=== PATIENT | female | born 1965 | race Two or more races ===

== ENCOUNTER 2025-04-28 18:50 | Emergency (ER) | payer OTHER ==
[~2025-04-28] VITALS: Ht 165.1 cm; Wt 63.5 kg
[~2025-04-28 18:50] MED LIST: CATAFLAM50 MG; FELDENE20 MG PO; FLEXERIL10 MG; NEURONTIN800 MG; NEURONTIN800 MG PO; PEPCID20 MG PO; RESTORIL30 MG; SEROQUEL200 MG; SIMVALTA; SKELAXIN; ULTRAM; ULTRAM ER300 MG; ULTRAM50 MG PO; XANAX XR0.5 MG; ZANAFLEX4 M1 PO
[2025-04-28] MEDS ORDERED: EFFEXOR XR37.5 MG (19:59)
[2025-04-28] MEDS ORDERED: FAMOtidine 40 MG in 0.9 % SODIUM CHLORIDE 8 ML IV PUSH ONE (20:30)
[2025-04-28] MEDS ORDERED: MORPHINE SULFATE 4 MG/ML CARTRIDGE IV ONE (20:30)
[2025-04-28] MEDS ORDERED: ONDANSETRON HCL 4 MG in 0.9 % SODIUM CHLORIDE 50 ML IV ONE (20:30)
[2025-04-28] MEDS ORDERED: ONDANSETRON HCL 2 MG/ML VIAL ONE (20:48)
[2025-04-28] MEDS ORDERED: FAMOTIDINE/PF 20 MG/2 ML VIAL ONE (20:48)
[2025-04-28 21:38] LABS: BASO % 1.6 % (0.1-1.2); EOS # 0.14 (0.04-0.54); EOS % 2.5 % (0.7-7.0); LYMPH # 2.12 (1.18-3.74); LYMPH % 37.5 % (19.3-53.1); MEAN PLATELET VOLUME 10.10 fl (9.4-12.4); MONO # 0.56 (0.24-0.82); MONO % 9.9 % (4.7-12.5); NEUT # 2.73 (1.56-6.13); NEUT % 48.3 % (34.0-71.1); RED CELL DISTRIBUTION WIDTH 13.2 % (11.6-14.4)
[2025-04-28 21:50] LABS: URINE APPEARANCE Clear; URINE BILIRRUBIN Negative (NEGATIVE); URINE BLOOD Negative; URINE COLOR Yellow; URINE GLUCOSE Negative (NEGATIVE); URINE KETONE Negative (NEGATIVE); URINE LEUKOCYTE Negative; URINE NITRATE Negative; URINE PROTEIN Negative (NEGATIVE); URINE UROBILINOGEN 0.2 E.U./dl
[2025-04-28 21:53] LABS: INR 0.98
[2025-04-28 21:54] LABS: URINE BACTERIA 266.4 uL (0.0-1933); URINE EPITHELIAL CELLS 2.7 uL (0.0-38.8); URINE WBC 16.1 uL (0.0-23.2)
[2025-04-28 21:57] LABS: URINE CAST 0.00 uL (0.0-1.40); URINE RBC 0.5 uL (0.0-20.8)
[2025-04-28 21:57] LABS: ALT/SGPT 49.0 U/L (12-78); AST/SGOT 42.0 U/L (15-37); BILIRUBIN TOTAL 0.28 mg/dL (0.3-1.2); BUN CREA RATIO 16.0 (7.0-25.0); CREATININE SERUM 0.75 mg/dL (0.55-1.02); GFR 79.37; GLOBULINA 2.3 G/DL (2.4-3.5); GLUCOSE FASTING 112.0 mg/dL (65-100); OSMOLALITY SERUM 297.0 MOSM/KG (275-295)
[2025-04-28] MEDS ORDERED: LASIX20 MG PO (23:55)
== END 2025-04-29 00:10 | disposition home or self-care (01) ==
LOC: ER 18:50
PROVIDERS: General Practice
DX: R60.9 Edema, unspecified (principal); I89.0 Lymphedema, not elsewhere classified; Z88.0 Allergy status to penicillin; Z88.2 Allergy status to sulfonamides
CPT/HCPCS: 36415; 71046; 93005; 96365; 99283; J2270; J3490

== ENCOUNTER 2025-06-04 19:21 | Emergency (ER) | payer OTHER ==
[~2025-06-04] VITALS: Ht 165.1 cm; Wt 63.5 kg
[~2025-06-04 19:21] MED LIST changes: +EFFEXOR XR37.5 MG; +LASIX20 MG PO
[2025-06-04] MEDS ORDERED: ZOLPIDEM TARTRA10 MG PO (20:33)
[2025-06-04] MEDS ORDERED: ATORVASTATIN CA40 MG PO (20:33)
[2025-06-04] MEDS ORDERED: RAMELTEON8 MG PO (20:33)
[2025-06-04 20:34] VITALS: BP 118/69; O2SAT 98
[2025-06-04] MEDS ORDERED: KETOROLAC TROMETHAMINE 30 MG VIAL IU ONE (22:00)
[2025-06-04] MEDS ORDERED: FAMOTIDINE/PF 20 MG/2 ML VIAL IV ONE (22:00)
[2025-06-04] MEDS ORDERED: KETOROLAC TROMETHAMINE 30 MG VIAL ONE (22:01)
[2025-06-04] MEDS ORDERED: FAMOTIDINE/PF 20 MG/2 ML VIAL ONE (22:01)
[2025-06-04 23:16] LABS: URINE APPEARANCE Clear; URINE BILIRRUBIN Negative (NEGATIVE); URINE BLOOD Negative; URINE COLOR Yellow; URINE GLUCOSE Negative (NEGATIVE); URINE KETONE Negative (NEGATIVE); URINE LEUKOCYTE Small; URINE NITRATE Negative; URINE PROTEIN Negative (NEGATIVE); URINE UROBILINOGEN 0.2 E.U./dl
[2025-06-04 23:17] LABS: BASO % 1.2 % (0.1-1.2); EOS # 0.24 (0.04-0.54); EOS % 4.6 % (0.7-7.0); LYMPH # 1.70 (1.18-3.74); LYMPH % 32.8 % (19.3-53.1); MEAN PLATELET VOLUME 11.00 fl (9.4-12.4); MONO # 0.54 (0.24-0.82); MONO % 10.4 % (4.7-12.5); NEUT # 2.64 (1.56-6.13); NEUT % 50.8 % (34.0-71.1); RED CELL DISTRIBUTION WIDTH 13.0 % (11.6-14.4)
[2025-06-04 23:21] LABS: URINE BACTERIA 683.9 uL (0.0-1933); URINE EPITHELIAL CELLS 87.0 uL (0.0-38.8); URINE RBC 9.6 uL (0.0-20.8); URINE WBC 54.9 uL (0.0-23.2)
[2025-06-04 23:27] LABS: URINE CAST 0.00 uL (0.0-1.40)
[2025-06-04 23:42] LABS: ALT/SGPT 29.0 U/L (12-78); AST/SGOT 34.0 U/L (15-37); BILIRUBIN TOTAL 0.29 mg/dL (0.3-1.2); BUN CREA RATIO 20.0 (7.0-25.0); CREATININE SERUM 0.61 mg/dL (0.55-1.02); GFR 100.74; GLOBULINA 3.2 G/DL (2.4-3.5); GLUCOSE FASTING 112.0 mg/dL (65-100); OSMOLALITY SERUM 293.0 MOSM/KG (275-295)
[2025-06-05] MEDS ORDERED: PEPCID AC20 MG PO (02:44)
[2025-06-05] MEDS ORDERED: PROTONIX40 MG PO (02:51)
[2025-06-05] MEDS ORDERED: DEXAMETHASONE SODIUM PHOSP/PF 10 MG/ML VIAL IV ONE (03:00)
[2025-06-05] MEDS ORDERED: MAG HYDROX/ALUMINUM HYD/SIMETH 30 ML BLIST.PACK PO ONE ×2 (03:00→03:02)
[2025-06-05] MEDS ORDERED: ACETAMINOPHEN 325 MG TABLET PO ONE (03:00)
[2025-06-05] MEDS ORDERED: DEXAMETHASONE SODIUM PHOSPHATE 4 MG/ML VIAL ONE (03:02)
== END 2025-06-05 03:23 | disposition home or self-care (01) ==
LOC: ER 19:21
PROVIDERS: General Practice
DX: K29.70 Gastritis, unspecified, without bleeding (principal); R10.9 Unspecified abdominal pain; Z88.0 Allergy status to penicillin; Z88.2 Allergy status to sulfonamides